=== PATIENT | female | born 1955 | race Two or more races ===

== ENCOUNTER 2016-09-15 13:17 | Emergency (ER) | payer SELFPAY ==
[2016-09-15] MEDS ORDERED: IOPAMIDOL 300 (61%) 150 ML VIAL IV ONE (13:18)
[2016-09-15 13:52] LABS: SPECIFIC GRAVITY 1.015 (1.001-1.030); URINE BILIRUBIN NEGATIVE (NEGATIVE); URINE BLOOD 3+ (NEGATIVE); URINE GLUCOSE (UA) 3+ (NEGATIVE); URINE LEUKOCYTE ESTERASE 2+ (NEGATIVE); URINE NITRITE NEGATIVE (NEGATIVE); URINE PROTEIN TRACE (NEGATIVE); URINE UROBILINOGEN NORMAL (0-1 mg/dl)
[2016-09-15 13:53] LABS: URINE APPEARANCE CLOUDY; URINE COLOR YELLOW
[2016-09-15 13:58] LABS: URINE BACTERIA 3+; URINE EPITHELIAL CELLS FEW /hpf; URINE WBC >100 /hpf
[2016-09-15] MEDS ORDERED: CEFTRIAXONE 1 GRAM DUPLEX 50 ML IV ONE (14:58)
[2016-09-15 15:20] LABS: ABSOLUTE NEUTROPHIL COUNT 4.5 K/mm3 (1.8-7.7); BASO % 0.4 % (0.2-1.0); EOS # 0.2 (0.0-0.5); EOS % 2.4 % (0.9-2.9); HEMATOCRIT 39.7 % (37.0-47.0); HEMOGLOBIN 13.3 gm/l (12.0-16.0); IMM NEUT% 0.2 % (0-1); LYMPH # 2.9 (1.0-4.8); LYMPH % 35.5 % (15-45); MEAN CELL VOLUME 82.7 fl (81.0-99.0); MEAN CORPUSCULAR HEMOGLOBIN 27.7 pg (27.0-31.0); MEAN CORPUSCULAR HGB CONC 33.5 g/dl (33.0-37.0); MEAN PLATELET VOLUME 10.5 fl (7.4-10.4); MONO # 0.5 (0.0-0.8); MONO % 5.6 % (4-12); NEUT % 55.9 % (43-75); PLATELET COUNT 310 K/mm3 (130-400); RED CELL DISTRIBUTION WIDTH 11.8 % (11.5-14.5)
[2016-09-15 15:54] LABS: ALB/GLOB RATIO 1.1 (>1.0); ALBUMIN 3.8 gm/dL (3.5-5.7)
--- NOTE | 2016-09-15 16:40 | CT ---
ABD/PELVIS W/ CON COMPARISON: CT abdomen and pelvis, 12/02/2009 HISTORY: Worsening lower abdominal pain with dysuria for 5 days. Right flank pain, abdominal pain, and blood in urine. Patient reports flank pain as well. Technique: No oral contrast. Intravenous injection 125 mL Isovue 300. Using a [employer] [address] scanner, images were obtained from the diaphragm to the floor the pelvis. An automated dose reduction technique was used to minimize patient radiation dose. Dose information: CTDIvol (mGy): 12.10 DLP(mGycm): 610.90 FINDINGS: Lung bases: Normal. Inferior mediastinum and heart: Normal. Liver: 10 mm calcification on the surface of the left lobe. Gallbladder:Normal. Bile ducts: Normal. Pancreas: Normal. Spleen: Normal. Adrenal glands: 11.5 mm nodule of the right adrenal gland, unchanged. Normal left adrenal gland. Kidneys: Heterogeneous enhancement with bilateral scarring. Ureters: Focal dilation of the middle third of the right ureter. No stone. Enhancement of the wall of the right ureter. Urinary bladder: Enhancement of the lining of the bladder. Uterus and adnexa: Normal. Blood vessels: Normal Lymph nodes: Normal Stomach: Normal Duodenum: Normal Small intestine: Normal Appendix: Normal Colon: Normal Abdominal wall and supporting musculature: Normal Bones: Normal IMPRESSION: 1. Irregular enhancement of both kidneys with some scarring, evidence of pyelonephritis, along with enhancement of the dilated right ureter. No obstructing stone. Report was sent to the emergency department electronic medical record system 09/15/2016 at 16:41
== END 2016-09-15 17:32 | disposition home or self-care (01) ==
LOC: ED 13:17
DX: N12 Tubulo-interstitial nephritis, not specified as acute or chronic (principal); I10 Essential (primary) hypertension; E11.9 Type 2 diabetes mellitus without complications; Z79.84 Long term (current) use of oral hypoglycemic drugs
CPT/HCPCS: 83690; 84703; 85025; 87086; 80053; 87186; 81001; 87077; 74177; 99283; 96365; 99284; Q9967; J0696